=== PATIENT | male | born 1960 | race Caucasian/White ===

== ENCOUNTER → 2020-07-04 | Outpatient (CLI) | payer BC ==
[~2020-07-04] MED LIST: ADVIL200 MG PO; ALLEGRA-D 24HR1 T24 PO; ALLEGRA-D TABLE1 TAB PO; AMITRIPTYLINE H50 M1 PO; AMOXICILLIN 8751 TAB PO; CEPHALEXIN500 M1 PO; CETIRIZINE; CHOLESTEROL MED; COZAAR 50MG50 MG/TAB PO; FLAGYL500 MG PO; IBUPROFEN; MOTRIN 600600 MG/TAB PO; NORCO 325 MG-51 TAB PO; NORCO 325 MG-7.1 TAB PO; PERCOCET 325 MG1 TA2 PO; PHENERGAN 25 TA25 MG PO; PRILOSEC 20MG20 MG PO; ROXICODONE 55 MG/TAB PO; TYLENOL 500MG500 MG PO; VALIUM 5MG T5 MG/TAB PO; ZANTAC; ZOCOR 40MG40 MG PO; ZYRTEC-D 5 MG-11 TER PO
== END ==
LOC: COL.RAD 13:07
DX: K57.20 Diverticulitis of large intestine with perforation and abscess without bleeding (principal); N32.89 Other specified disorders of bladder
CPT/HCPCS: Q9967

== ENCOUNTER 2020-08-26 10:50 | Inpatient (IN) | payer BC ==
[~2020-08-26] VITALS: Ht 177.8 cm; Wt 100.0 kg
[~2020-08-26 10:50] MED LIST changes: -ADVIL200 MG PO; -ALLEGRA-D 24HR1 T24 PO; -ALLEGRA-D TABLE1 TAB PO; -AMOXICILLIN 8751 TAB PO; -FLAGYL500 MG PO; -MOTRIN 600600 MG/TAB PO; -NORCO 325 MG-51 TAB PO; -ROXICODONE 55 MG/TAB PO; -TYLENOL 500MG500 MG PO
[2020-08-26] MEDS ORDERED: ALLEGRA-D TABLE1 TAB PO (11:10)
[2020-08-26 11:15] LABS: BASO # 0.1 (0.0-0.2); BASO % 0.4 % (0.0-2.0); EOS # 0.1 (0.0-0.7); EOS % 0.4 % (0-4.0); GRAN # 10.8 (1.4-6.5); GRAN % 86.8 % (42.2-75.2); HEMATOCRIT 48.8 % (42.0-52.0); HEMOGLOBIN 17.3 g/dl (13.5-18.0); LYMPH # 0.7 (1.2-3.4); LYMPH % 5.4 % (20.0-51.0); MEAN CELL VOLUME 83 fl (80.0-100.0); MEAN CORPUSCULAR HEMOGLOBIN 29 pg (27.0-31.0); MEAN CORPUSCULAR HGB CONC 36 g/dl (33.0-37.0); MONO # 0.8 (0.1-0.6); MONO % 6.5 % (1.7-9.3); PLATELET COUNT 210 K/mm3 (130-400); REDCELL DISTRIBUTION WIDTH-CV 13.1 % (11.5-14.5)
[2020-08-26] MEDS ORDERED: ADVIL200 MG PO (11:21)
[2020-08-26 11:26] LABS: ALBUMIN 4.1 gm/dL (3.5-5.0); BILIRUBIN,TOTAL 0.7 mg/dL (0.0-1.0); CALCIUM 9.3 mg/dL (8.4-10.2); CREATININE, serum 1.14 (0.66-1.25); TOTAL PROTEIN 7.3 gm/dL (6.4-8.2)
[2020-08-26 11:50] LABS: C-REACTIVE PROTEIN 1.7 mg/dL (0.0-0.9)
--- NOTE | 2020-08-26 14:00 | NUR ---
PATIENT ADMITED INTO ROOM 323 FROM ER. PATIENT IS A&O ON ADMIT. PATIENT ASKED TO VOID SOON HE ARRIVED, UA SENT. PATIENT REPORTS HE HAD NOT VOIDED SINCE EARLY THIS AM. PATIENT RECEIVED 2L OF FLUIDS IN ER. LR INFUSING AT 200CC/HR INTO RIGHT FORARM IV VIA PUMP. NOTED ELEVATED HR IN THE 120'S ON TELE. ER REPORTED FEVERS OF 102 & 101.2. NOTIFIED PROVIDER, GAVE 1,000MG OF TYLENOL NOW. PATIENT IS FLUSHED, SHIVERING, AND STATING HE "DOESN'T FEEL WELL AT ALL". PATIENT REPORTS FEELING COLD BUT IS HOT TO TOUCH. ROOM TEMP TURNED DOWN. HEAD TO TOE ASSESSMENT COMPLETE. AT BEDSIDE. ORIENTED TO ROOM. CALL LIGHT IN REACH. WILL MONITOR.
[2020-08-26 14:01] VITALS: BP 136/85; PULSE 126; TEMP 99.5
[2020-08-26 14:12] LABS: COLLECTION METHOD CLEAN CATCH
[2020-08-26 14:19] LABS: MUCOUS Present /lpf; PH 5 (5-8); SQUAMOUS EPITHELIAL None Seen /hpf; URINE APPEARANCE Clear; URINE BACTERIA None Seen /hpf; URINE BILIRUBIN Negative (NEGATIVE); URINE BLOOD Negative (NEGATIVE); URINE COLOR Yellow; URINE GLUCOSE Negative (NEGATIVE); URINE KETONE Negative (NEGATIVE); URINE LEUKOCYTE ESTERASE Negative (NEGATIVE); URINE NITRATE Negative (NEGATIVE); URINE PROTEIN(semi-quant) Negative (NEGATIVE); URINE RBC None Seen /hpf; URINE UROBILINOGEN Negative (NEGATIVE)
[2020-08-26 16:00] VITALS: BP 109/59; PULSE 90; TEMP 99.6
[2020-08-26] MEDS ORDERED: ALLEGRA-D 24HR1 T24 PO (16:45)
[2020-08-26 19:55] VITALS: BP 116/61; PULSE 75; TEMP 98.7
--- NOTE | 2020-08-26 22:46 | NUR ---
ALERT AND OX4. LAYING IN BED W COVERS OVER HEAD. SHIVERING AND STATES BODY ACHES ALL OVER. PM MEDS,TYL AND ANTIBOITIC INFUSING. POC DISCUSSED. NEEDS MET.
[2020-08-27 03:58] VITALS: BP 106/48; PULSE 80; TEMP 101.9
--- NOTE | 2020-08-27 05:10 | NUR ---
FEVER THIS AM, TYL GIVEN. PT CONTINUE TO HAVE BODY ACHES. ANTIBOTICS AND FLUIDS RUNNING.
[2020-08-27 07:10] LABS: BASO % 0.3 % (0.0-2.0); EOS % 0.2 % (0-4.0); GRAN # 8.4 (1.4-6.5); GRAN % 83.5 % (42.2-75.2); HEMATOCRIT 43.1 % (42.0-52.0); LYMPH % 10.2 % (20.0-51.0); MEAN CELL VOLUME 85 fl (80.0-100.0); MEAN CORPUSCULAR HEMOGLOBIN 29 pg (27.0-31.0); MEAN CORPUSCULAR HGB CONC 34 g/dl (33.0-37.0); MEAN PLATELET VOLUME 10.6 fl (7.4-10.4); MONO # 0.5 (0.1-0.6); MONO % 5.4 % (1.7-9.3); PLATELET COUNT 161 K/mm3 (130-400); RED BLOOD COUNT 5.05 M/mm3 (4.20-5.60); REDCELL DISTRIBUTION WIDTH-CV 13.5 % (11.5-14.5)
[2020-08-27 07:23] LABS: HEMOGLOBIN 14.8 g/dl (13.5-18.0)
[2020-08-27 07:24] LABS: ALBUMIN 3.1 gm/dL (3.5-5.0); BILIRUBIN,TOTAL 0.8 mg/dL (0.0-1.0); CALCIUM 8.4 mg/dL (8.4-10.2); CREATININE, serum 1.08 (0.66-1.25); POTASSIUM 3.8 mmol/L (3.4-5.0); TOTAL PROTEIN 5.7 gm/dL (6.4-8.2)
[2020-08-27 08:01] VITALS: BP 106/65; PULSE 66; TEMP 98.2
--- NOTE | 2020-08-27 09:09 | NUR ---
Linux Developer met with the patient to complete intake. The patient lives independently in [place] with his , Jessica. The patient denies DME use. The patient's PCP is Dr. Momin and patient receives medications from [facility]. The patient does not have advanced directives and was not interested in DPOA-HC at this time. The patient plans to return home with Jessica. *Discharge disposition: Home with spouse.
--- NOTE | 2020-08-27 10:00 | NUR ---
Patient alert and oriented, answers questions appropriately. See assessment. Abdomen soft, non tender, non distended. Bowel sounds active x4 quads. +Flatus. +Bowel movement. Passing flatus. Patient sleeping during every check this a.m., awakens to verbal stimuli. No c/o at this time.
[2020-08-27 11:55] VITALS: BP 115/65; PULSE 72; TEMP 98.4
[2020-08-27 15:44] VITALS: BP 105/46; PULSE 84; TEMP 98
[2020-08-27 19:54] VITALS: BP 116/60; PULSE 62; TEMP 97.8
--- NOTE | 2020-08-27 21:22 | NUR ---
ALERT AND OX4. C/O LOWER ABD PAIN, CANT RATE HE STATES BUT ITS BAD. TYL 1 GRAM GIVEN FOR PAIN AND DISCOMFORT. ANTIBOTICS INFUSING PER ORDER. DID NOT GIVEN PM COZZAR PT STATES HIS ALREADY GAVE HIM HIS EVENING MEDS. POC DISCUSSED. NEEDS MET.
[2020-08-28] VITALS (7 sets, daily range): BP systolic 84–126; BP diastolic 43–71; PULSE 56–67; TEMP 97.8–99.4
--- NOTE | 2020-08-28 05:06 | NUR ---
RESTED IN BED OVERNIGHT WITHOUT INCIDENT. NO FEVERS OVERNIGHT. PAIN CONTROLLED W TYLENOL. NEEDS MET.
[2020-08-28 07:18] LABS: BASO % 0.3 % (0.0-2.0); EOS # 0.1 (0.0-0.7); EOS % 0.9 % (0-4.0); GRAN # 7.1 (1.4-6.5); GRAN % 79.1 % (42.2-75.2); HEMATOCRIT 42.1 % (42.0-52.0); HEMOGLOBIN 14.2 g/dl (13.5-18.0); LYMPH # 1.2 (1.2-3.4); LYMPH % 13.1 % (20.0-51.0); MEAN CELL VOLUME 86 fl (80.0-100.0); MEAN CORPUSCULAR HEMOGLOBIN 29 pg (27.0-31.0); MEAN CORPUSCULAR HGB CONC 34 g/dl (33.0-37.0); MONO # 0.6 (0.1-0.6); MONO % 6.3 % (1.7-9.3); PLATELET COUNT 161 K/mm3 (130-400); RED BLOOD COUNT 4.87 M/mm3 (4.20-5.60); REDCELL DISTRIBUTION WIDTH-CV 13.2 % (11.5-14.5)
[2020-08-28 07:47] LABS: CALCIUM 8.3 mg/dL (8.4-10.2); CREATININE, serum 1.03 (0.66-1.25); POTASSIUM 4.1 mmol/L (3.4-5.0)
--- NOTE | 2020-08-28 09:16 | NUR ---
PT SITTING UP IN BED EATING BREAKFAST OF CLEARS. AT BEDSIDE. PT DENIES NEEDS. DENIES PAIN AT THIS TIME. IV ABX RUNNING ORDERED.
--- NOTE | 2020-08-28 10:05 | NUR ---
Initial visit; Patient and his thanked Hot Die Picker for looking in on him and offering God's blessings.
--- NOTE | 2020-08-28 22:40 | NUR ---
Pt has been resting fine with no concern. Pain rated 0/10. VSS and will continue to monitor.
--- NOTE | 2020-08-29 00:24 | NUR ---
Pt is ambulating in the room. no concern, no pain.
[2020-08-29 04:16] VITALS: BP 111/71; PULSE 57; TEMP 98.5
[2020-08-29] MEDS ORDERED: ZOCOR 40MG40 MG PO (04:19)
--- NOTE | 2020-08-29 05:41 | NUR ---
Pt has been resting comfortably. VSS, Will continue to monitor.
[2020-08-29 06:41] LABS: BASO % 0.4 % (0.0-2.0); EOS # 0.1 (0.0-0.7); EOS % 1.6 % (0-4.0); GRAN # 5.5 (1.4-6.5); GRAN % 71.5 % (42.2-75.2); HEMATOCRIT 43.7 % (42.0-52.0); HEMOGLOBIN 15.1 g/dl (13.5-18.0); LYMPH # 1.5 (1.2-3.4); LYMPH % 19.6 % (20.0-51.0); MEAN CELL VOLUME 83 fl (80.0-100.0); MEAN CORPUSCULAR HEMOGLOBIN 29 pg (27.0-31.0); MEAN CORPUSCULAR HGB CONC 35 g/dl (33.0-37.0); MEAN PLATELET VOLUME 10.8 fl (7.4-10.4); MONO # 0.5 (0.1-0.6); MONO % 6.6 % (1.7-9.3); PLATELET COUNT 202 K/mm3 (130-400); RED BLOOD COUNT 5.25 M/mm3 (4.20-5.60); REDCELL DISTRIBUTION WIDTH-CV 12.9 % (11.5-14.5)
[2020-08-29 06:54] LABS: CALCIUM 8.5 mg/dL (8.4-10.2); CREATININE, serum 1.04 (0.66-1.25); POTASSIUM 3.6 mmol/L (3.4-5.0)
[2020-08-29 07:53] VITALS: BP 107/64; PULSE 57; TEMP 97.5
--- NOTE | 2020-08-29 08:17 | NUR ---
PT RESTING IN BED. PLAN ON CT OF ABDOMEN THIS AM.
[2020-08-29 11:56] VITALS: BP 116/67; PULSE 68; TEMP 98.3
[2020-08-29 15:56] VITALS: BP 111/70; PULSE 64; TEMP 98.8
[2020-08-29 20:00] VITALS: BP 117/72; PULSE 69; TEMP 98.2
--- NOTE | 2020-08-29 22:30 | NUR ---
pt is doing ok.Pain rated 4/10 but refused pain meds. Will continue to monitor.
[2020-08-30 00:12] VITALS: BP 115/66; PULSE 59; TEMP 98.5
[2020-08-30 04:27] VITALS: BP 115/63; PULSE 62; TEMP 98
[2020-08-30 06:57] LABS: BASO # 0.1 (0.0-0.2); BASO % 0.8 % (0.0-2.0); EOS # 0.2 (0.0-0.7); EOS % 2.3 % (0-4.0); HEMATOCRIT 44.5 % (42.0-52.0); HEMOGLOBIN 15.4 g/dl (13.5-18.0); LYMPH # 1.8 (1.2-3.4); LYMPH % 27.1 % (20.0-51.0); MEAN CELL VOLUME 83 fl (80.0-100.0); MEAN CORPUSCULAR HEMOGLOBIN 29 pg (27.0-31.0); MEAN CORPUSCULAR HGB CONC 35 g/dl (33.0-37.0); MEAN PLATELET VOLUME 10.5 fl (7.4-10.4); MONO # 0.6 (0.1-0.6); MONO % 8.3 % (1.7-9.3); PLATELET COUNT 248 K/mm3 (130-400); RED BLOOD COUNT 5.37 M/mm3 (4.20-5.60)
[2020-08-30 07:54] VITALS: BP 99/71; PULSE 61; TEMP 97.5
--- NOTE | 2020-08-30 09:30 | NUR ---
Patient is doing well. Denies pain and nausea. He stated he is uncomfortable. He is hoping to discharge today. He stated he had a bowel movement, denied there being any blood or it being dark in color. He is tolerating diet well. No other changes at this time. Call light within reach.
[2020-08-30] MEDS ORDERED: NORCO 325 MG-51 TAB PO (11:00)
[2020-08-30] MEDS ORDERED: FLAGYL500 MG PO (11:01)
[2020-08-30] MEDS ORDERED: AMOXICILLIN 8751 TAB PO (11:01)
--- NOTE | 2020-08-30 11:37 | NUR ---
The patient to tentatively discharge home with spouse today, 08/30. The patient is independent and has no needs.
--- NOTE | 2020-08-30 13:45 | NUR ---
Patient is discharging home. Discharge instructions dicussed with patient. No questions verbalized. Both INT's discontinued. Explained that he has prescriptions to pickle sorter at the pharmacy and when his follow up appointment is. No questions verbalized. All belongings packed up and sent with patient. His is here to pick him up. Patient walked out via wheel chair by this RN.
== END 2020-08-30 13:45 | disposition home or self-care (01) | DRG 392 ==
LOC: COL.ER 10:50 → SURG 12:12
PROVIDERS: Family Medicine; ADMIT Surgery
DX: K57.80 Diverticulitis of intestine, part unspecified, with perforation and abscess without bleeding (principal); D72.829 Elevated white blood cell count, unspecified
CPT/HCPCS: A9284; J0696; J1650; J2405; J2543; J3480; J7030; J7120; Q9967

== ENCOUNTER 2020-09-22 09:27 | Inpatient (IN) | payer BC ==
[~2020-09-22] VITALS: Ht 177.8 cm; Wt 95.5 kg
[~2020-09-22 09:27] MED LIST changes: +ADVIL200 MG PO; +ALLEGRA-D 24HR1 T24 PO; +ALLEGRA-D TABLE1 TAB PO; +AMOXICILLIN 8751 TAB PO; +FLAGYL500 MG PO; +NORCO 325 MG-51 TAB PO
[2020-09-22 09:56] LABS: BASO # 0.1 (0.0-0.2); BASO % 0.5 % (0.0-2.0); EOS # 0.1 (0.0-0.7); EOS % 0.5 % (0-4.0); GRAN # 12.8 (1.4-6.5); GRAN % 83.2 % (42.2-75.2); HEMATOCRIT 48.9 % (42.0-52.0); LYMPH # 1.3 (1.2-3.4); LYMPH % 8.3 % (20.0-51.0); MEAN CELL VOLUME 82 fl (80.0-100.0); MEAN CORPUSCULAR HEMOGLOBIN 29 pg (27.0-31.0); MEAN CORPUSCULAR HGB CONC 35 g/dl (33.0-37.0); MEAN PLATELET VOLUME 10.2 fl (7.4-10.4); MONO # 1.1 (0.1-0.6); PLATELET COUNT 262 K/mm3 (130-400); RED BLOOD COUNT 5.95 M/mm3 (4.20-5.60); REDCELL DISTRIBUTION WIDTH-CV 13.4 % (11.5-14.5)
[2020-09-22 10:08] LABS: ALBUMIN 4.1 gm/dL (3.5-5.0); BILIRUBIN,TOTAL 0.6 mg/dL (0.0-1.0); C-REACTIVE PROTEIN 7.1 mg/dL (0.0-0.9); CALCIUM 10.1 mg/dL (8.4-10.2); CREATININE, serum 0.96 (0.66-1.25); POTASSIUM 4.5 mmol/L (3.4-5.0); TOTAL PROTEIN 7.8 gm/dL (6.4-8.2)
[2020-09-22] MEDS ORDERED: ALLEGRA-D 24HR1 T24 PO (11:43)
[2020-09-22 13:47] VITALS: BP 108/63; PULSE 97; TEMP 98.2
--- NOTE | 2020-09-22 14:22 | NUR ---
ASSESSMENT PERFORMED, FLUIDS HANGING, DIET ORDER PLACED PER DR. GOMEZ ORDERS, PT REPORTS PAIN 2/10, EDUCATED HIM TO CALL BEFORE HIS PAIN INCREASED TOO MUCH ITS EASIER TO TREAT A LOWER PAIN LEVEL THAN A HIGHER ONE, ASMISSION COMPLETED, NO OTHER NEEDS AT THIS TIME.
[2020-09-22 16:05] VITALS: BP 119/65; PULSE 96; TEMP 98.6
--- NOTE | 2020-09-22 17:50 | NUR ---
PT PLEASANT, AOX4, REPORTS LESSENING OF PAIN WITH NORCO, IV ZOSYN INFUSING, NO OTHER NEEDS
[2020-09-22 20:24] VITALS: BP 114/76; PULSE 98; TEMP 99.6
--- NOTE | 2020-09-22 22:25 | NUR ---
Shift assessment completed. Patient pleasant, A/O x4. Patient reports pain 4/10 to his abdomimal area. PRN Marianna given per MAR. Patient denies SOB, N/V or diarrhea. LR infusing well at 75ml/hr via left AC. Ice water provided. Call light within reach. Will continue to monitor.
[2020-09-23] VITALS (13 sets, daily range): BP systolic 98–125; BP diastolic 55–77; PULSE 72–104; TEMP 97.5–98.8
[2020-09-23 07:06] LABS: BASO # 0.1 (0.0-0.2); BASO % 0.4 % (0.0-2.0); EOS # 0.1 (0.0-0.7); EOS % 0.9 % (0-4.0); GRAN # 12.6 (1.4-6.5); GRAN % 80.4 % (42.2-75.2); HEMATOCRIT 42.6 % (42.0-52.0); LYMPH # 1.6 (1.2-3.4); LYMPH % 9.9 % (20.0-51.0); MEAN CELL VOLUME 85 fl (80.0-100.0); MEAN CORPUSCULAR HEMOGLOBIN 29 pg (27.0-31.0); MEAN CORPUSCULAR HGB CONC 34 g/dl (33.0-37.0); MEAN PLATELET VOLUME 10.4 fl (7.4-10.4); MONO # 1.2 (0.1-0.6); MONO % 7.9 % (1.7-9.3); PLATELET COUNT 226 K/mm3 (130-400); RED BLOOD COUNT 5.02 M/mm3 (4.20-5.60); REDCELL DISTRIBUTION WIDTH-CV 13.5 % (11.5-14.5)
[2020-09-23 07:08] LABS: HEMOGLOBIN 14.5 g/dl (13.5-18.0)
--- NOTE | 2020-09-23 08:26 | NUR ---
PT SLEEPING UPON ENTRY, ASSESSMENT PERFORMED, PT AOX4, DID NOT REPORT PAIN AT THIS TIME. HAS NOT ORDERED BREAKFAST YET, NO OTHER NEEDS.
--- NOTE | 2020-09-23 09:35 | NUR ---
PT TAKEN DOWNSTAIRS FOR DRAIN PLACEMENT. CONSENT OBTAINED AND PT CHANGED INTO A GOWN.
--- NOTE | 2020-09-23 09:47 | NUR ---
0947 HR 79, SR. 119/70, 18 REG AND NL, 99% RA. TIME OUT COMPLETE. NPO STATUS AND ALLERGIES REVIEWED 0959 VERSED 1MG AND FENTANYL 25 MCG GIVEN PER VO. 109/62, 80, 90% 1006 O2 APPLIED AT 2L/NC 1007 FENTANYL 25 MCG GIVEN; 108/57, 89SR, 98% 2L/NC RASS -1 1010 93/59, 90, 99%2L/NC. RASS -1 1017 99/54, 96, 99% 2L/NC VERSED 0.5MG GIVEN. RASS 0 1020 106/65, 95, 99% 2L/NC 1023 FENTANYL 25MCG GIVEN FOR PAIN; PATIENT TO ROOM AIR AT THIS TIME 1030 105/61, 101, 99% RM. TRANSFERRED TO CART FOR TRANSPORT. DRAIN IN PLACE, NO DRAINAGE SURROUNDING INSERTION SITE NOTED. SPECIMEN TO LAB WITH SITE SPECIALIST. PATIENT DROWSY BUT AROUSES EASILY AND ANSWERS QUESTIONS APPROPRIATELY. BEDSIDE REPORT GIVEN TO JENIFFER DELGADO ON MEDICAL AND VERIFIED DRAIN SITE. ALSO SHOWN HOW TO EMPTY DRAIN SYSTEM PER REQUEST OF DR. LARA.
[2020-09-23 09:51] LABS: COLLECTION METHOD CLEAN CATCH
--- NOTE | 2020-09-23 09:56 | NUR ---
TO RADIOLOGY VIA WHEEL CHAIR FOR CT GUIDED ABCESS DRAIN PLACEMENT. ALLERGIES AND NPO STATUS VERIFIED. A/O. CONSENT SIGNED AND ON CHART
[2020-09-23 10:00] LABS: MUCOUS Present /lpf; PH 5 (5-8); SQUAMOUS EPITHELIAL None Seen /hpf; URINE APPEARANCE Clear; URINE BACTERIA None Seen /hpf; URINE BILIRUBIN Negative (NEGATIVE); URINE BLOOD Negative (NEGATIVE); URINE COLOR Yellow; URINE GLUCOSE Negative (NEGATIVE); URINE KETONE Negative (NEGATIVE); URINE LEUKOCYTE ESTERASE Negative (NEGATIVE); URINE NITRATE Negative (NEGATIVE); URINE PROTEIN(semi-quant) Negative (NEGATIVE); URINE RBC 0-2 /hpf; URINE UROBILINOGEN Negative (NEGATIVE)
--- NOTE | 2020-09-23 10:55 | NUR ---
PT ARRIVED TO FLOOR, POST OP VITALS OBTAINED, PT DRAIN SITE CDI, OPEN TO AIR, ACCORDIAN DRAIN IN PROPER POSITION, VERIFIED WITH NYLA DELGADO. PT VERY DROWSY AT THIS TIME.
--- NOTE | 2020-09-23 14:53 | NUR ---
PT REPORTING PAIN 5/10 IN ABD, NORCO GIVEN
--- NOTE | 2020-09-23 17:37 | NUR ---
pt in room, c/o being sweaty, ac turned on in room, pain rated 4/10, ernestinan carrington, pt independent in room steady on feet, accordion drain has very little output. no other needs
--- NOTE | 2020-09-23 21:31 | NUR ---
Shift assessment completed. Patient A/O x4. Patient reports pain 4/10 to abdominal area. Abscess drain insertion site C/D/I and draining bloody purulent fluids to the drainage bag. PRN Empire given for pain. All scheduled meds given per MAY. Held BP med tonight due to soft BP. Patient tolerated dinner. Denies N/V, SOB or headache. IVF running currently per MAY. Call light within reach. Will continue to monitor.
[2020-09-24 00:09] VITALS: BP 112/72; PULSE 80; TEMP 97.3
[2020-09-24 03:36] VITALS: BP 109/69; PULSE 64; TEMP 97.8
--- NOTE | 2020-09-24 05:40 | NUR ---
Patient slept well throughout the night. Patient states abdominal pain is a little better this morning and denies pain meds. Patient reports some minor headache this morning. PRN Tylenol given around 05:30 am. 50ml of bloody fluids drained from accordion drain. Call light within reach. Will continue to monitor.
[2020-09-24 06:48] LABS: HEMATOCRIT 44.1 % (42.0-52.0); HEMOGLOBIN 14.8 g/dl (13.5-18.0); MEAN CELL VOLUME 86 fl (80.0-100.0); MEAN CORPUSCULAR HEMOGLOBIN 29 pg (27.0-31.0); MEAN CORPUSCULAR HGB CONC 34 g/dl (33.0-37.0); MEAN PLATELET VOLUME 11.3 fl (7.4-10.4); PLATELET COUNT 192 K/mm3 (130-400); RED BLOOD COUNT 5.13 M/mm3 (4.20-5.60); REDCELL DISTRIBUTION WIDTH-CV 13.2 % (11.5-14.5)
[2020-09-24 08:49] VITALS: BP 108/64; PULSE 60; TEMP 97.7
--- NOTE | 2020-09-24 08:58 | NUR ---
Pt AOx4, able to ambulate independently in room. Pt complained of headache and rated abdominal pain 2/10, intermittent sharp pain with movement. Pain managed with medication. No further needs at this time.
--- NOTE | 2020-09-24 09:13 | NUR ---
SW met with the patient to discuss discharge plan. The patient lives in [place] with his , Jessica (ph#[phone]). He reports independence with ADLs and does not have any DME. The patient's PCP is Dr. Daniel Momin and he receives his medications from [facility]. He reports no difficulties obtaining his meds. The patient does not have a DPOA-HC and he was not interested in completing one while here. The patient plans to return home with his upon discharge. No additional needs at this time. *Discharge plan: home with *
[2020-09-24 11:40] VITALS: BP 108/60; PULSE 71; TEMP 97.8
[2020-09-24 16:30] VITALS: BP 115/63; PULSE 69; TEMP 98.4
--- NOTE | 2020-09-24 17:29 | NUR ---
Pt reported pain during morning assessment, pain managed with PRN tylenol per orders. Pt reported partial to complete relief. Pt drain remained intact this shift, scant serosanguineous draingage noted. Pt to discharge this evening with spouse. Both pt and spouse educated on discharge planning, education, and need for follow up appointment.
== END 2020-09-24 17:46 | disposition home or self-care (01) | DRG 392 ==
LOC: COL.ER 09:27 → MEDICAL 11:31
PROVIDERS: Family Medicine; ADMIT Surgery
PROC: 0W9G30Z Drainage of Peritoneal Cavity with Drainage Device, Percutaneous Approach (ICD-10-PCS; principal; 2020-09-22)
DX: K57.20 Diverticulitis of large intestine with perforation and abscess without bleeding (principal); I10 Essential (primary) hypertension; E78.00 Pure hypercholesterolemia, unspecified; Z87.891 Personal history of nicotine dependence
CPT/HCPCS: C1729; J2250; J2270; J2405; J2543; J3010; J7120; Q9967

== ENCOUNTER 2020-09-26 16:17 | Inpatient (IN) | payer BC ==
[~2020-09-26] VITALS: Ht 177.8 cm; Wt 93.3 kg
[2020-10-04] VITALS (9 sets, daily range): BP systolic 96–124; BP diastolic 50–79; PULSE 88–108; TEMP 97.8–98.4
[2020-10-04] MEDS ORDERED: MOTRIN 600600 MG/TAB PO (12:44)
--- NOTE | 2020-10-04 18:15 | NUR ---
Pt arrived to floor atthis time via bed with OR staff. ABD has 5 lap sites tht are well approxiamted and covered with bandaids. Midline incision is covered and CDI. Pt reports pain in ABD is 10/10 will rpovided IV pain meds as VSS. brought up by PACU nurse, will conitnue to monitor.
--- NOTE | 2020-10-04 19:15 | NUR ---
Pt. laying in bed with at bedside. Pt. is a&OX3, shift assessment complete. IV to lt. hand patent, IV fluids infusing per orders. Pt. reported pain at a 10 of 10 and was given walter. Dr. Mckeon notified, new order reveived.
[2020-10-05] VITALS (7 sets, daily range): BP systolic 93–117; BP diastolic 57–70; PULSE 81–105; TEMP 97.5–99.1
[2020-10-05 06:18] LABS: HEMATOCRIT 44.3 % (42.0-52.0); HEMOGLOBIN 15.1 g/dl (13.5-18.0); MEAN CELL VOLUME 85 fl (80.0-100.0); MEAN CORPUSCULAR HEMOGLOBIN 29 pg (27.0-31.0); MEAN CORPUSCULAR HGB CONC 34 g/dl (33.0-37.0); MEAN PLATELET VOLUME 10.8 fl (7.4-10.4); PLATELET COUNT 246 K/mm3 (130-400); RED BLOOD COUNT 5.23 M/mm3 (4.20-5.60); REDCELL DISTRIBUTION WIDTH-CV 13.8 % (11.5-14.5)
[2020-10-05 06:24] LABS: CALCIUM 9.5 mg/dL (8.4-10.2); CREATININE, serum 0.86 (0.66-1.25); POTASSIUM 4.7 mmol/L (3.4-5.0)
[2020-10-05 06:33] LABS: BAND 6 % (0-10); LYMPHOCYTE 5 % (20.0-51.0); NEUTROPHILS 84 % (42.0-75.2); PLATELET ESTIMATE NORMAL (NORMAL)
--- NOTE | 2020-10-05 10:45 | NUR ---
First visit from the survey cad technician. No needs right now.
--- NOTE | 2020-10-05 11:05 | NUR ---
0700 PT RECEIVED RESTING IN BED. NO S/S OF DISTRESS NOTED. PT VOICED NO CONCERN. PT DENIES PAIN. TAPE AND BANDAID NOTED TO THE ABDOMEN. ABDOMEN SOFT AND TENDER. CALL-LIGHT IN REACH. BED IN LOW POSITION. COMFORT MEASURES IN PLACE. 0800 PT ATE HIS MEAL. 0900 MEDICATIONS ADMINISTERED ORDERED.
--- NOTE | 2020-10-05 14:22 | NUR ---
Rock met with the pt, present, who stated his preference to return home once medically stable in [place], [place]. The pt lives at home with his , Jessica (ph# [phone]). The pt is independent on all ADls and uses no DME. The PCP is Daniel Momin and gets his medications from [facility]. The pt has never used HH services before. The Pt does not have a DPOA-Hc and not interested in one at this time. No other needs stated at this time. Rock to await further recommendations and follow up as needed. D/c: Home.
--- NOTE | 2020-10-05 18:05 | NUR ---
6090 PT IS SITTING IN CHAIR. DENIES HAVING PAIN. SPOUSE AT THE BEDSIDE. PT ATE HIS SUPPER. COMFORT MEASURES IN PLACE. WILL CONTINUE TO MONITOR.
--- NOTE | 2020-10-05 21:40 | NUR ---
Pt. sitting up in bed. Pt. is A&OX3, assessment complete. INT to lt. hand patent. Pt. reports pain to abd. at a 4 on pain scale, gave scheduled meds. Pt. denies further needs, call light within reach.
[2020-10-06 00:43] VITALS: BP 107/64; PULSE 71; TEMP 98.6
[2020-10-06 03:39] VITALS: BP 96/50; PULSE 68; TEMP 97.5
[2020-10-06 06:18] LABS: BASO # 0.1 (0.0-0.2); BASO % 0.4 % (0.0-2.0); EOS # 0.1 (0.0-0.7); EOS % 0.3 % (0-4.0); GRAN # 14.4 (1.4-6.5); GRAN % 80.9 % (42.2-75.2); HEMATOCRIT 38.4 % (42.0-52.0); LYMPH # 2.3 (1.2-3.4); LYMPH % 12.7 % (20.0-51.0); MEAN CELL VOLUME 86 fl (80.0-100.0); MEAN CORPUSCULAR HGB CONC 33 g/dl (33.0-37.0); MEAN PLATELET VOLUME 10.7 fl (7.4-10.4); MONO # 0.9 (0.1-0.6); MONO % 5.2 % (1.7-9.3); PLATELET COUNT 231 K/mm3 (130-400); RED BLOOD COUNT 4.46 M/mm3 (4.20-5.60); REDCELL DISTRIBUTION WIDTH-CV 14.1 % (11.5-14.5)
[2020-10-06 06:26] LABS: CALCIUM 8.9 mg/dL (8.4-10.2); CREATININE, serum 0.88 (0.66-1.25); POTASSIUM 4.1 mmol/L (3.4-5.0)
[2020-10-06 06:27] LABS: HEMOGLOBIN 12.7 g/dl (13.5-18.0); MEAN CORPUSCULAR HEMOGLOBIN 28 pg (27.0-31.0)
[2020-10-06 08:00] VITALS: BP 100/65; PULSE 74; TEMP 97.7
--- NOTE | 2020-10-06 08:10 | NUR ---
Patient resting in bed. Denies need for pain medication at this time. Abdomen soft. bowel audible, he reports flatus. Int. Denies nausea. Tolerates low fiber diet. Will monitor.
[2020-10-06 11:30] VITALS: BP 103/63; PULSE 96; TEMP 98.8
[2020-10-06 16:00] VITALS: BP 107/71; PULSE 84; TEMP 98.9
--- NOTE | 2020-10-06 19:45 | NUR ---
Patient rested well this afternoon. Eras protocol followed. Patient reports a prior left foot surgery, so he is unable to ambulate far, but he has been up and around in his room. He has tolerated meals without nausea. Pain per tylenol as scheduled. He reports flatus & bm. at bedside. [facility]
[2020-10-06 19:46] VITALS: BP 123/71; PULSE 87; TEMP 98.7
--- NOTE | 2020-10-06 23:07 | NUR ---
Pt has been ok. Pain rated 6/10.Oxycodone was given. VSS. Will continue to monitor.
[2020-10-07 04:44] VITALS: BP 123/71; PULSE 81; TEMP 98.5
[2020-10-07 07:27] LABS: BASO # 0.1 (0.0-0.2); BASO % 0.6 % (0.0-2.0); EOS # 0.2 (0.0-0.7); EOS % 1.7 % (0-4.0); GRAN # 7.3 (1.4-6.5); GRAN % 69.8 % (42.2-75.2); HEMATOCRIT 37.5 % (42.0-52.0); HEMOGLOBIN 12.6 g/dl (13.5-18.0); LYMPH # 2.1 (1.2-3.4); LYMPH % 20.4 % (20.0-51.0); MEAN CELL VOLUME 85 fl (80.0-100.0); MEAN CORPUSCULAR HEMOGLOBIN 28 pg (27.0-31.0); MEAN CORPUSCULAR HGB CONC 34 g/dl (33.0-37.0); MEAN PLATELET VOLUME 10.4 fl (7.4-10.4); MONO # 0.7 (0.1-0.6); PLATELET COUNT 246 K/mm3 (130-400); RED BLOOD COUNT 4.43 M/mm3 (4.20-5.60)
[2020-10-07 07:31] VITALS: BP 140/74; PULSE 83; TEMP 98.1
[2020-10-07] MEDS ORDERED: ROXICODONE 55 MG/TAB PO (08:00)
[2020-10-07] MEDS ORDERED: FLAGYL500 MG PO (08:02)
[2020-10-07] MEDS ORDERED: TYLENOL 500MG500 MG PO (08:02)
[2020-10-07] MEDS ORDERED: AMOXICILLIN 8751 TAB PO (08:02)
--- NOTE | 2020-10-07 09:58 | NUR ---
Patient ready for discharge. rounded. Patient awake & alert today. Tylenol as scheduled & oxycodone for abdominal pain. Patient INT DC. Abdomen soft, bowels audible. incision edges well approximated. Med list reviewed. New scripts reviewed. Patient has taken all before & denies questions. 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 Low fiber diet reviewed-patient well education. Patient wheeled out with all belongings. His wofe taking him home. They deny questions & concerns.
--- NOTE | 2020-10-07 12:27 | NUR ---
Initial visit; Patient and his thanked for looking in on him and offering God's blessings though were disgruntled that their son had driven a long distance to see his dad and couldn't get in. explained that our rules concerning one visitor per patient are back in place due to people not wearing masks and getting vaccinated thus we are seeing numbers of COVID-19 patients increase throughout the state.
== END 2020-10-07 10:10 | disposition home or self-care (01) | DRG 331 ==
LOC: INPTSU 10-04 12:12 → SURG 10-04 14:00
PROVIDERS: ADMIT Surgery
PROC: 8E0W0CZ Robotic Assisted Procedure of Trunk Region, Open Approach (ICD-10-PCS; 2020-10-04)
PROC: 0DTN0ZZ Resection of Sigmoid Colon, Open Approach (ICD-10-PCS; principal; 2020-10-04 14:00)
DX: K57.20 Diverticulitis of large intestine with perforation and abscess without bleeding (principal); I10 Essential (primary) hypertension; E78.00 Pure hypercholesterolemia, unspecified; Z20.822 Contact with and (suspected) exposure to COVID-19; K21.9 Gastro-esophageal reflux disease without esophagitis
CPT/HCPCS: A4314; J0330; J0690; J1100; J1650; J1885; J2405; J2543; J2704; J3010; J7120